=== PATIENT | female | born 1985 | race African-American/Black ===

== ENCOUNTER 2020-11-07 08:50 | Emergency (ER) | payer BC, SELFPAY ==
[2020-11-07 10:11] LABS: Bilirubin Negative (Negative); Blood, Urine Negative (Negative); Clarity Clear (Clear); Glucose, Urine (Dipstick) Normal (Negative); Ketone, Urine Negative (Negative); Leukocyte 250 Leu/uL (Negative); Nitrite 2+ (Negative); Protein, Urine (Dipstick) Negative (Neg-Trace); RBC/HPF 0-3 HPF (0-3); Specific Gravity, Urine 1.013 (1.002-1.036); Squamous Epithelial 0-3 HPF (0-3); Urobilinogen Normal mg/dL (Less than 2); pH, Urine 7.5 (5.0-9.0)
[2020-11-07 10:12] LABS: Bacteria/HPF 2+ HPF (None Seen)
== END 2020-11-07 10:14 | disposition home or self-care (01) ==
LOC: ERS 08:50
DX: J02.9 Acute pharyngitis, unspecified (principal); N76.0 Acute vaginitis
CPT/HCPCS: 81003; 81015; 87081; 87430; 99283

== ENCOUNTER 2021-10-17 16:00 | Emergency (ER) | payer BC ==
[2021-10-17 16:34] LABS: Bacteria/HPF 4+ HPF (None Seen); Bilirubin Negative (Negative); Blood, Urine Negative (Negative); Clarity Turbid (Clear); Glucose, Urine (Dipstick) Normal (Negative); Ketone, Urine Negative (Negative); Leukocyte 500 Leu/uL (Negative); Nitrite 2+ (Negative); Protein, Urine (Dipstick) Negative (Neg-Trace); RBC/HPF 0-3 HPF (0-3); Specific Gravity, Urine 1.014 (1.002-1.036); Squamous Epithelial 0-3 HPF (0-3); Urobilinogen Normal mg/dL (Less than 2); WBC/HPF 21-50 HPF (0-3); pH, Urine 5.5 (5.0-9.0)
[2021-10-17 17:35] LABS: Pregnancy Test - Urine (BHCG) Negative (Negative); Pregu Control Background? CLEAR/WHITE (CLR/WHITE); Pregu Control Bar Appear? YES (CONTROL BAR); Specific Gravity 1.014 (1.002-1.036)
[2021-10-17] MEDS ORDERED: cefTRIAXone\\ROCEPHIN 1 GM VIAL ONE (18:13)
[2021-10-17] MEDS ORDERED: Lidocaine 1% PF 5 ML VIAL ONE (18:13)
[2021-10-18 12:28] LABS: Chlam.trachomatis by PCR,Urine Not Detected (NotDetected)
== END 2021-10-17 18:32 | disposition home or self-care (01) ==
LOC: ERS 16:00
DX: N30.00 Acute cystitis without hematuria (principal)
CPT/HCPCS: 81003; 81015; 81025; 87491; 87591; 96374; J0696

== ENCOUNTER 2022-02-21 08:52 | Emergency (ER) | payer BC | END 2022-02-21 09:20 | disposition home or self-care (01) | LOC: ERS 08:52 | DX: S16.1XXA Strain of muscle, fascia and tendon at neck level, initial encounter (principal); X58.XXXA Exposure to other specified factors, initial encounter | CPT/HCPCS: 99283 ==

== ENCOUNTER 2022-06-15 13:29 | Emergency (ER) | payer BC ==
[2022-06-15] MEDS ORDERED: Ketorolac Tromethamine 30 MG/ML VIAL ONE (13:50)
== END 2022-06-15 15:10 | disposition home or self-care (01) ==
LOC: ERS 13:29
DX: R51.9 Headache, unspecified (principal); M62.838 Other muscle spasm
CPT/HCPCS: 36416; 87804; 96372; 99284; J1885

== ENCOUNTER 2023-12-03 08:59 | Emergency (ER) | payer BC, OTHER ==
[2023-12-03] MEDS ORDERED: Ibuprofen 200 MG TAB ONE (09:54)
== END 2023-12-03 10:56 | disposition home or self-care (01) ==
LOC: ERS 08:59
DX: N60.11 Diffuse cystic mastopathy of right breast (principal); N63.10 Unspecified lump in the right breast, unspecified quadrant

== ENCOUNTER 2024-03-18 16:34 | Emergency (ER) | payer OTHER, SELFPAY ==
[2024-03-18 20:14] LABS: Pregnancy Test - Urine (BHCG) Negative (Negative); Pregu Control Background? CLEAR/WHITE (CLR/WHITE); Pregu Control Bar Appear? YES (CONTROL BAR); Specific Gravity 1.013 (1.002-1.036)
[2024-03-18 20:21] LABS: Bilirubin Negative (Negative); Blood, Urine Negative (Negative); CAUTI Indications for Culture Dysuria,urgency,freq; Clarity Turbid (Clear); Glucose, Urine (Dipstick) Normal (Negative); Ketone, Urine Negative (Negative); Leukocyte 500 Leu/uL (Negative); Nitrite 2+ (Negative); Protein, Urine (Dipstick) Negative (Neg-Trace); Specific Gravity, Urine 1.014 (1.002-1.036); Squamous Epithelial 0-3 HPF (0-3); Urobilinogen Normal mg/dL (Less than 2); pH, Urine 5.5 (5.0-9.0)
[2024-03-18 20:22] LABS: Bacteria/HPF 2+ HPF (None Seen); WBC/HPF 21-50 HPF (0-3)
[2024-03-18 20:23] LABS: RBC/HPF 0-3 HPF (0-3)
[2024-03-18 20:24] LABS: Urine Culture Reflex Yes Yes
[2024-03-19 13:39] LABS: Chlam.trachomatis by PCR,Urine Not Detected (NotDetected); GC N.gonorrhoeae PCR,UrineVOID Not Detected (NotDetected)
== END 2024-03-18 19:52 | disposition home or self-care (01) ==
LOC: ERS 16:34
DX: Z20.2 Contact with and (suspected) exposure to infections with a predominantly sexual mode of transmission (principal)
CPT/HCPCS: 81001; 81025; 87077; 87086; 87186; 87491; 87591; 99283